=== PATIENT | male | born 1990 | race Two or more races ===

== ENCOUNTER 2021-12-05 10:14 | Emergency (ER) | payer OTHER ==
[~2021-12-05] VITALS: Ht 167.6 cm; Wt 118.0 kg
[2021-12-05] MEDS ORDERED: LIDOCAINE 5% PATCH TOP SCH (11:00)
[2021-12-05 11:30] VITALS: BP 103/78
[2021-12-05] MEDS ORDERED: IBUPROFEN 400MG TABLET PO ONE (11:30)
[2021-12-05] MEDS ORDERED: IBUP-2028 MT (12:00)
== END 2021-12-05 12:31 | disposition home or self-care (01) ==
LOC: ER 10:59
DX: S01.312A Laceration without foreign body of left ear, initial encounter (principal); M25.511 Pain in right shoulder; Z87.891 Personal history of nicotine dependence; W51.XXXA Accidental striking against or bumped into by another person, initial encounter; Y93.89 Activity, other specified; Y92.39 Other specified sports and athletic area as the place of occurrence of the external cause; Y99.8 Other external cause status
CPT/HCPCS: 73030; 99283; Z7610